=== PATIENT | female | born 1960 | race Caucasian/White ===

== ENCOUNTER 2016-09-11 18:40 | Emergency (ER) | payer BC ==
[2016-09-11 19:02] LABS: BASOPHIL COUNT 0.1 K/uL (0-0.1); EOSINOPHIL (%) 2.2 % (0-5); EOSINOPHIL COUNT 0.2 K/uL (0-0.3); HEMATOCRIT 42.7 % (36.0-46.0); IMMATURE GRANULOCYTE (%) 0.3 % (0.0-0.7); INSTRUMENT ABS NEUTROPHIL CT 5.1 K/uL; LYMPHOCYTE COUNT 3.4 K/uL (1.0-2.8); MCH 31.1 PG (29.0-34.0); MCHC 33.3 G/DL (30.0-36.0); MCV 93.4 FL (83-99); MEAN PLAT.VOLUME 10.7 uM^3 (9.5-12.4); MONOCYTE COUNT 0.7 K/uL (0-0.8); NEUTROPHIL (%) 53.2 % (45-76); NEUTROPHIL COUNT 5.1 K/uL (1.8-6.4); PLATELET COUNT 265 K/uL (156-360); RBC DIS.WIDTH-CV 12.2 % (11.8-14.6); RBC DIS.WIDTH-SD 42.2 % (39-53); RED BLOOD COUNT 4.57 M/uL (3.80-5.20); WHITE BLOOD COUNT 9.5 K/uL (4.1-10.2)
[2016-09-11 19:14] LABS: CHLORIDE 102 mEq/L (99-109); POTASSIUM 3.8 mEq/L (3.7-5.4); SODIUM 137 mEq/L (136-147)
[2016-09-11 19:16] LABS: GLUCOSE 88 mg/dL (70-99)
[2016-09-11 19:18] LABS: TOTAL BILIRUBIN 0.4 mg/dL (0.0-1.0)
[2016-09-11 19:20] LABS: ALKALINE PHOSPHATASE 89 IU/L (3-129); ANION GAP 10 MEQ/L (2-14)
[2016-09-11] MEDS ORDERED: PROTONIX (19:20)
[2016-09-11] MEDS ORDERED: SIMVASTATIN (19:20)
[2016-09-11] MEDS ORDERED: ASPIRIN (19:20)
[2016-09-11] MEDS ORDERED: LEXAPRO (19:20)
[2016-09-11] MEDS ORDERED: METOPROLOL (19:20)
[2016-09-11 19:29] LABS: DIRECT BILIRUBIN 0.2 mg/dL (0.0-0.3); GFR ESTIMATE (CALCULATED) > 59 mL/min/; UREA NITROGEN (BUN) 13 mg/dL (9-23)
[2016-09-11 20:15] VITALS: BP 149/72
[2016-09-11] MEDS ORDERED: NORCO 5/3251 TABLET PO (21:12)
[2016-09-11] MEDS ORDERED: FLEXERIL10 MG PO (21:12)
[2016-09-11] MEDS ORDERED: MOTRIN800 MG PO (21:12)
== END 2016-09-11 21:47 | disposition home or self-care (01) ==
LOC: TRA 18:40
PROVIDERS: Emergency Medicine
DX: S09.90XA Unspecified injury of head, initial encounter (principal); S46.911A Strain of unspecified muscle, fascia and tendon at shoulder and upper arm level, right arm, initial encounter; S70.02XA Contusion of left hip, initial encounter; S50.01XA Contusion of right elbow, initial encounter; V03.10XA Pedestrian on foot injured in collision with car, pick-up truck or van in traffic accident, initial encounter; Y92.410 Unspecified street and highway as the place of occurrence of the external cause; M54.2 Cervicalgia; N85.9 Noninflammatory disorder of uterus, unspecified; M54.9 Dorsalgia, unspecified
CPT/HCPCS: 70450; 71260; 72125; 73030; 73070; 74177; 80048; 80076; 85025; 86850; 86900; 86901; 99281; 99285; J1100; J1200; J3010; J7030